=== PATIENT | male | born 1975 | race Hispanic/Latino ===

== ENCOUNTER 2017-04-22 16:28 | Observation (INO) | payer OTHER ==
[~2017-04-22] VITALS: Ht 165.1 cm; Wt 82.4 kg
[2017-04-22 17:36] LABS: HEMATOCRIT 48.5 % (39.0-50.0); HEMOGLOBIN 16.8 g/dl (14.0-18.0); IMMATURE GRANULOCYTES 0.6 % (0.0-1.0); MEAN CELL VOLUME 83.5 fL CALC (80.0-100.0); MEAN CORPUSCULAR HGB 28.9 pG CALC (26.0-32.0); MEAN CORPUSCULAR HGB CONC 34.6 g/L CALC (32.0-36.0); NEUT# 6.69 thou/uL (1.82-7.42); RED BLOOD COUNT 5.81 mill/uL (4.70-6.10); RED CELL DISTRI WIDTH 12.9 % (11.5-15.5)
[2017-04-22 17:37] LABS: URINE BILIRUBIN - DIPSTICK NEGATIVE (NEGATIVE); URINE BLOOD DIPSTICK NEGATIVE (NEGATIVE); URINE CLARITY CLEAR; URINE COLOR YELLOW; URINE GLUCOSE - DIPSTICK NEGATIVE (NEGATIVE); URINE KETONE NEGATIVE (NEGATIVE); URINE LEUK ESTERASE NEGATIVE (NEGATIVE); URINE NITRITE - DIPSTICK NEGATIVE (Negative); URINE PH 5.5 (4.5-8.0); URINE PROTEIN - DIPSTICK 30 mg/dL (NEG-TRACE); URINE SPECIFIC GRAVITY >=1.030; URINE UROBILINOGEN - DIPSTICK 0.2 E.U./dL (0.2)
[2017-04-22 17:39] LABS: URINE RBC 0-2 RBC/hpf (0-5); URINE WBC 0-2 WBC/hpf (0-5)
[2017-04-22 17:55] LABS: ALKALINE PHOSPHATASE 84 u/l (38-126); ANION GAP 28 (6-22 (CALC)); BILIRUBIN, TOTAL 0.6 mg/dL (0.0-1.4); BUN 26 mg/dL (9-20); BUN/CREATININE RATIO 17 (12-20 (CALC)); CALCIUM 11.1 mg/dL (8.4-10.2); CARBON DIOXIDE 24 mmol/l (22-30); CHLORIDE 93 mmol/l (95-108); CPK 211 u/l (52-200); CREATININE 1.5 mg/dL (0.7-1.3); GFR 52 ML/MIN (>=60 (CALC)); GFR FOR AFR.AMER. > 60 ML/MIN (>=60 (CALC)); GLUCOSE 114 mg/dL (75-110); POTASSIUM 4.3 mmol/l (3.5-5.1); SGOT/AST 32 u/l (17-59); SGPT/ALT 52 u/l (21-72); SODIUM 141 mmol/l (137-146); TOTAL PROTEIN 10.4 g/dL (6.3-8.2)
[2017-04-22 19:15] VITALS: BP 139/85
[2017-04-22 23:40] VITALS: BP 132/78
[2017-04-23 04:00] VITALS: BP 119/73
[2017-04-23 06:15] LABS: HEMOGLOBIN 14.4 g/dl (14.0-18.0); MEAN CORPUSCULAR HGB 28.8 pG CALC (26.0-32.0); MEAN CORPUSCULAR HGB CONC 33.5 g/L CALC (32.0-36.0); RED CELL DISTRI WIDTH 13.2 % (11.5-15.5)
[2017-04-23 06:33] LABS: ANION GAP 16 (6-22 (CALC)); BUN 21 mg/dL (9-20); BUN/CREATININE RATIO 27 (12-20 (CALC)); CALCIUM 9.3 mg/dL (8.4-10.2); CARBON DIOXIDE 29 mmol/l (22-30); CHLORIDE 100 mmol/l (95-108); CREATININE 0.8 mg/dL (0.7-1.3); GFR > 60 ML/MIN (>=60 (CALC)); GFR FOR AFR.AMER. > 60 ML/MIN (>=60 (CALC)); GLUCOSE 104 mg/dL (75-110); MAGNESIUM 1.8 mg/dL (1.6-2.3); POTASSIUM 4.3 mmol/l (3.5-5.1); SODIUM 140 mmol/l (137-146)
[2017-04-23 07:41] VITALS: BP 119/66
[2017-04-23 10:43] VITALS: BP 131/73
== END 2017-04-23 13:26 | disposition home or self-care (01) | DRG 684 ==
LOC: ED 16:28 → EDSEX 16:28 → ED 17:35 → ED-I 18:10 → ED 18:26 → MS2 18:27
PROVIDERS: Emergency Medicine; Internal Medicine; ADMIT Internal Medicine; ATTEND Internal Medicine
DX: N17.9 Acute kidney failure, unspecified (principal); E83.39 Other disorders of phosphorus metabolism; E86.0 Dehydration; X30.XXXA Exposure to excessive natural heat, initial encounter; Y93.H3 Activity, building and construction; Y92.89 Other specified places as the place of occurrence of the external cause
CPT/HCPCS: G0378

== ENCOUNTER 2019-01-28 21:47 | Emergency (ER) | payer SELFPAY ==
[~2019-01-28] VITALS: Ht 165.1 cm; Wt 90.0 kg
[2019-01-28] MEDS ORDERED: AUGMENTIN875TAB PO (23:56)
[2019-01-29] VITALS: BP 138/60
== END 2019-01-29 00:03 | disposition home or self-care (01) | DRG 605 ==
LOC: ED 21:47
DX: S80.871A Other superficial bite, right lower leg, initial encounter (principal); W54.0XXA Bitten by dog, initial encounter; Y92.009 Unspecified place in unspecified non-institutional (private) residence as the place of occurrence of the external cause

== ENCOUNTER 2023-09-15 10:00 | Day surgery (SDC) | payer OTHER ==
[~2023-09-15] VITALS: Ht 165.1 cm; Wt 104.3 kg
[~2023-09-15 10:00] MED LIST: AUGMENTIN875TAB PO; CRESTOR40 MG PO; LOSARTAN POTASS25 MG PO; METFORMIN500 M2 PO; OMEPRAZOLE DR40 MG PO
[2023-09-15 13:23] VITALS: BP 141/94
== END 2023-09-15 12:39 | disposition home or self-care (01) | DRG 392 ==
LOC: ENDO 10:00 → ORM 11:05 → ENDO 12:39 → ORM 13:15 → ENDO 13:15 → ORM 14:25
PROVIDERS: ATTEND Internal Medicine Gastroenterology
PROC: 0DB48ZX Excision of Esophagogastric Junction, Via Natural or Artificial Opening Endoscopic, Diagnostic (ICD-10-PCS; principal; 2023-09-15)
PROC: 0DB78ZX Excision of Stomach, Pylorus, Via Natural or Artificial Opening Endoscopic, Diagnostic (ICD-10-PCS; 2023-09-15)
PROC: 0DB28ZX Excision of Middle Esophagus, Via Natural or Artificial Opening Endoscopic, Diagnostic (ICD-10-PCS; 2023-09-15)
DX: K21.00 Gastro-esophageal reflux disease with esophagitis, without bleeding (principal); K29.70 Gastritis, unspecified, without bleeding; B96.81 Helicobacter pylori [H. pylori] as the cause of diseases classified elsewhere; K22.70 Barrett's esophagus without dysplasia

== ENCOUNTER 2024-11-15 07:55 | Day surgery (SDC) | payer OTHER ==
[~2024-11-15] VITALS: Ht 167.6 cm; Wt 108.9 kg
[~2024-11-15 07:55] MED LIST changes: +LOSARTAN POTASS50 MG PO; +OZEMPIC2 MG
[2024-11-15] MEDS ORDERED: SODIUM CHLORIDE 0.9% 1,000 ML IV ONE (08:12)
[2024-11-15] MEDS ORDERED: FAMOTIDINE 10MG/ML 2ML SDV IV ONE (08:27)
[2024-11-15 09:47] VITALS: BP 133/80
[2024-11-15] MEDS ORDERED: MIDAZOLAM HCL 2 MG/2 ML VIAL IV ONE (12:57)
[2024-11-15] MEDS ORDERED: LIDOCAINE HCL 2% 2ML SDV IV ONE (12:57)
[2024-11-15] MEDS ORDERED: PROPOFOL 200 MG/20 ML VIAL IV ONE (12:57)
[2024-11-15] MEDS ORDERED: GLYCOPYRROLATE 0.2 MG/ML IV ONE (12:57)
== END 2024-11-15 10:00 | disposition home or self-care (01) | DRG 392 ==
LOC: ORM 07:55
PROVIDERS: ATTEND Surgery
PROC: 0DB48ZX Excision of Esophagogastric Junction, Via Natural or Artificial Opening Endoscopic, Diagnostic (ICD-10-PCS; principal; 2024-11-15)
PROC: 0DB78ZX Excision of Stomach, Pylorus, Via Natural or Artificial Opening Endoscopic, Diagnostic (ICD-10-PCS; 2024-11-15)
PROC: 0DB68ZX Excision of Stomach, Via Natural or Artificial Opening Endoscopic, Diagnostic (ICD-10-PCS; 2024-11-15)
DX: K21.9 Gastro-esophageal reflux disease without esophagitis (principal); K29.50 Unspecified chronic gastritis without bleeding; I10 Essential (primary) hypertension; E11.9 Type 2 diabetes mellitus without complications; Z86.19 Personal history of other infectious and parasitic diseases; Z87.19 Personal history of other diseases of the digestive system
CPT/HCPCS: J1596